=== PATIENT | male | born 1970 | race African-American/Black ===

== ENCOUNTER 2016-04-27 18:00 | Inpatient (IN) | payer OTHER ==
[~2016-04-27] VITALS: Ht 190.5 cm; Wt 126.5 kg
[2016-04-27] MEDS ORDERED: OPTIRAY 350 100 ML VIAL HMH IV ONE (18:01)
[2016-04-27] MEDS ORDERED: SODIUM CHLORIDE 0.9% 100 ML IV ONE (22:41)
[2016-04-27] MEDS ORDERED: CEFTRIAXONE 1 GM VIAL ONE (22:41)
[2016-04-27] MEDS ORDERED: ENOXAPARIN 100 MG/ML SYR SUBQ ONE (22:46)
[2016-04-27] MEDS ORDERED: ENOXAPARIN 30 MG/0.3 ML SYR ONE (22:55)
[2016-04-27] MEDS ORDERED: AZITHROMYCIN 500 MG VIAL IV ONE (23:06)
[2016-04-27] MEDS ORDERED: SODIUM CHLORIDE 0.9% 250 ML IV ONE (23:06)
[2016-04-28] VITALS (10 sets, daily range): BP systolic 120–144; RESP 16–24; TEMP 97.2–98.5; Ht 190.5 cm; Wt 126.5 kg
[2016-04-28] MEDS ORDERED: SALINE FLUSH 10 ML FLUSH PRN (00:35)
[2016-04-28] MEDS ORDERED: ONDANSETRON 4 MG VIAL IV PRN (00:35)
[2016-04-28] MEDS ORDERED: ENOXAPARIN 100 MG/ML MDV SUBQ SCH (00:35)
[2016-04-28] MEDS: SALINE FLUSH 10 ML FLUSH SCH ×3 (02:59→20:59)
[2016-04-28] MEDS: SODIUM CHLORIDE 0.9% FLUSH BAG 500 ML IV SCH (05:14)
[2016-04-28] MEDS: LEVOFLOXACIN 750 MG/150 ML 150 ML IV SCH (08:05)
[2016-04-28] MEDS: ENOXAPARIN 120 MG/0.8 ML SYR SUBQ SCH ×2 (11:05→23:27)
[2016-04-28] MEDS ORDERED: LOTREL 5/10 CAP PO ONE (16:21)
[2016-04-28] MEDS: oxyCODONE/APAP 10/325 TABLET PO PRN ×2 (19:07→23:29)
[2016-04-28] MEDS: Atorvastatin 20 MG TAB PO SCH (20:59)
[2016-04-29] VITALS (8 sets, daily range): BP systolic 125–158; RESP 16–20; TEMP 97.6–98.8
[2016-04-29] MEDS: oxyCODONE/APAP 10/325 TABLET PO PRN ×2 (05:26→11:01)
[2016-04-29] MEDS: SODIUM CHLORIDE 0.9% FLUSH BAG 500 ML IV SCH (05:28)
[2016-04-29] MEDS: LOTREL 5/10 CAP PO SCH (08:02)
[2016-04-29] MEDS: SALINE FLUSH 10 ML FLUSH SCH ×2 (08:02→20:00)
[2016-04-29] MEDS: LEVOFLOXACIN 750 MG/150 ML 150 ML IV SCH (08:02)
[2016-04-29] MEDS: ENOXAPARIN 120 MG/0.8 ML SYR SUBQ SCH ×2 (11:01→23:08)
[2016-04-29] MEDS: SODIUM CHLORIDE 0.9% 1,000 ML IV SCH (13:43)
[2016-04-29] MEDS: TRAMADOL 50 MG TAB PO PRN (18:34)
[2016-04-29] MEDS: Atorvastatin 20 MG TAB PO SCH (21:13)
[2016-04-30] VITALS (8 sets, daily range): BP systolic 122–140; RESP 16–20; TEMP 97.8–98.8
[2016-04-30] MEDS: SODIUM CHLORIDE 0.9% FLUSH BAG 500 ML IV SCH (04:41)
[2016-04-30] MEDS: SODIUM CHLORIDE 0.9% 1,000 ML IV SCH (05:47)
[2016-04-30] MEDS: LEVOFLOXACIN 750 MG/150 ML 150 ML IV SCH (08:02)
[2016-04-30] MEDS: SALINE FLUSH 10 ML FLUSH SCH ×2 (08:02→22:04)
[2016-04-30] MEDS: LOTREL 5/10 CAP PO SCH (08:02)
[2016-04-30] MEDS: TRAMADOL 50 MG TAB PO PRN ×3 (08:13→22:01)
[2016-04-30] MEDS: ENOXAPARIN 120 MG/0.8 ML SYR SUBQ SCH (11:31)
[2016-04-30] MEDS ORDERED: LACTULOSE SOLN 20GM/30ML UDC PO PRN (12:25)
[2016-04-30] MEDS ORDERED: Furosemide 40 MG/4 ML VIAL IV ONE (12:25)
[2016-04-30] MEDS ORDERED: MISSING DOSE XX ONE (21:35)
[2016-04-30] MEDS: Atorvastatin 20 MG TAB PO SCH (22:00)
[2016-05-01] MEDS: Rivaroxaban 15 MG TAB PO SCH ×2 (00:07→09:06)
[2016-05-01 03:19] VITALS: BP_SYST 120; RESP 16; TEMP 97.9
[2016-05-01] MEDS: TRAMADOL 50 MG TAB PO PRN (06:19)
[2016-05-01] MEDS: SODIUM CHLORIDE 0.9% FLUSH BAG 500 ML IV SCH (06:20)
[2016-05-01 07:22] VITALS: BP_SYST 125; RESP 18; TEMP 97.7
[2016-05-01] MEDS: SALINE FLUSH 10 ML FLUSH SCH (09:06)
[2016-05-01] MEDS: LOTREL 5/10 CAP PO SCH (09:06)
[2016-05-01] MEDS: LEVOFLOXACIN 750 MG/150 ML 150 ML IV SCH (09:06)
[2016-05-01 11:05] VITALS: BP_SYST 135; RESP 18; TEMP 97.9
[2016-05-01 14:12] VITALS: BP_SYST 135; RESP 18; TEMP 97.9
== END 2016-05-01 15:15 | disposition home or self-care (01) | DRG 175 ==
LOC: ENRESERVTM → ENRESERVDT → ER 18:00 → EMR 18:01 → 3NT 04-28 01:56 → ENPENDDIS 04-28 20:22 → OBSVTOIN 04-28 20:22
PROVIDERS: ADMIT Internal Medicine; ATTEND Internal Medicine
DX: I26.99 Other pulmonary embolism without acute cor pulmonale (principal); J18.9 Pneumonia, unspecified organism; I82.401 Acute embolism and thrombosis of unspecified deep veins of right lower extremity; I10 Essential (primary) hypertension; G47.33 Obstructive sleep apnea (adult) (pediatric)
CPT/HCPCS: 36415; 70450; 71020; 71260; 80047; 80053; 82553; 84484; 85014; 85025; 85610; 85730; 87040; 93970; 94799; 96361; 96365; 96372; 96375; 99219; 99231; 99232; 99238